=== PATIENT | male | born 1980 | race Caucasian/White ===

== ENCOUNTER 2018-12-10 19:07 | Emergency (ER) | payer SELFPAY ==
[2018-12-10] MEDS ORDERED: Tetan/Diph/Pertus SYR(Tdap)* 0.5 ML SYR(BOOSTRIX) use SYR IM ONE (19:24)
[2018-12-10] MEDS ORDERED: Ibuprofen TAB* 600 MG PO ONE (19:24)
--- NOTE | 2018-12-10 19:26 | ED ---
Lower Extremity - HPI Summary HPI Summary: 37 year [facility] complains of left jennings pain after slipping and landing on concrete step at work yesterday. The patient rates the pain 7/10 in severity. Symptoms aggravated by walking. Symptoms alleviated by nothing. Patient reports left jennings ecchymosis, left jennings abrasions, left jennings swelling. Patient is unsure whether he is up to date with his tetanus shot. - History of Current Complaint Chief Complaint: EDExtremityLower Stated Complaint: "LEFT LEG INJURY PER PT" Time Seen by Provider: 12/10/18 19:16 Hx Obtained From: Patient Mechanism Of Injury: Other - slipping and falling on to concrete step Onset/Duration: Still Present - 1 Severity Currently: Moderate Pain Intensity: 7 Pain Scale Used: 0-10 Numeric Timing: Constant Associated Signs And Symptoms: Positive: Other - left jennings ecchymosis, left jennings abrasions, left jennings swelilng Aggravating Factor(s): Movement Alleviating Factor(s): Nothing - Allergies/Home Medications Allergies/Adverse Reactions: Allergies Allergy/AdvReac Type Severity Reaction Status Date / Time No Known Allergies Allergy Verified 12/10/18 19:12 PMH/Surg Hx/FS Hx/Imm Hx Previously Healthy: No Endocrine/Hematology History: Denies: Hx Diabetes Cardiovascular History: Denies: Hx Hypertension Respiratory History: Denies: Hx Asthma GI History: Reports: Other GI Disorders - inguinal hernia Sensory History: Denies: Hx Legally Blind, Hx Deafness Opthamlomology History: Denies: Hx Legally Blind EENT History: Denies: Hx Deafness - Surgical History Surgery Procedure, Year, and Place: bilateral inguinal hernia February 2018 Infectious Disease History: No Infectious Disease History: Denies: Traveled Outside the [place] in Last 30 Days - Family History Known Family History: Positive: Other - Lung CA - Social History Alcohol Use: Occasionally Hx Substance Use: No Substance Use Type: Reports: None Hx Tobacco Use: Yes Smoking Status (MU): Heavy Every Day Tobacco Smoker Type: Cigarettes Review of Systems Positive: Other - left jennings pain Positive: Other - left jennings ecchymosis and left jennings abrasions All Other Systems Reviewed And Are Negative: Yes Physical Exam - Summary Physical Exam Summary: Appearance: Well appearing, no pain distress Skin: warm, dry, reflects adequate perfusion Head/face: normal Eyes: EOMI, BAYLEE ENT: normal Neck: supple, non-tender Respiratory: CTA, breath sounds present Cardiovascular: RRR, pulses symmetrical Abdomen: non-tender, soft Musculoskeletal: abrasion and swelling of lateral aspect of left leg Neuro: normal, sensory motor intact, A&Ox3 Triage Information Reviewed: Yes Vital Signs On Initial Exam: Initial Vitals Temp Pulse Resp BP Pulse Ox 99.1 F 106 16 141/87 97 12/10/18 19:12 12/10/18 19:12 12/10/18 19:12 12/10/18 19:12 12/10/18 19:12 Vital Signs Reviewed: Yes Diagnostics - Vital Signs Vital Signs Temp Pulse Resp BP Pulse Ox 12/10/18 19:12 99.1 F 106 16 141/87 97 - Laboratory Lab Statement: Any lab studies that have been ordered have been reviewed, and results considered in the medical decision making process. - Radiology X-ray Radiology Interpretation Completed By: ED Physician Summary of Radiographic Findings: Negative for fracture. Pending official report. Re-Evaluation - Re-Evaluation First Eval Re-Evaluation Time: 19:44 Change: Improved Lower Extremity Course/Dx - Course Course Of Treatment: 37 year old M presenting to [facility] complains of left jennings pain, left jennings ecchymosis, left jennings abraison, left jennings swelling after slipping and landing on concrete step at work yesterday. X-ray is negative for fracture. In ED course, patient was given Motrin and tetanus shot. Patient feels better. Patient will be discharged home with follow up from primary care provider in 3 days. He was advised to use ibuprofen for pain and swelling. Patient was instructed to return to ED for new or worsening symptoms. Patient understands and is agreeable to discharge plan. - Diagnoses Differential Diagnosis/HQI/PQRI: Positive: Contusion, Fracture (Closed) Provider Diagnoses: Abrasion of leg, left, Contusion Discharge - Sign-Out/Discharge Documenting (check all that apply): Patient Departure - Discharge Patient Received Moderate/Deep Sedation with Procedure: No - Discharge Plan Condition: Stable Disposition: HOME Prescriptions: Ibuprofen TAB* [Motrin TAB* 600 MG] 600 mg PO Q8H PRN #15 tab MDD 3 PRN Reason: Pain Patient Education Materials: Contusion in Adults (ED) Forms: *Work Release Referrals: [facility]YSICIAN REFERRAL [Outside] - 3 Days Additional Instructions: Arrange a primary care provider to have a follow up appointment in 3 days. RETURN TO EMERGENCY DEPARTMENT FOR NEW OR WORSENING SYMPTOMS. - Billing Disposition and Condition Condition: STABLE Disposition: Home - Attestation Statements Document Initiated by Grady: Yes Documenting Scribe: Patricia Bonner Provider For Whom Grady is Documenting (Include Credential): Main Guzman MD Scribe Attestation: Patricia Palmer, scribed for Main Guzman MD on 12/10/18 at 2020. Scribe Documentation Reviewed: Yes Provider Attestation: The documentation as recorded by the Patricia rivero accurately reflects the service I personally performed and the decisions made by , Main Guzman MD Status of Scribe Document: Viewed
[2018-12-10 20:22] VITALS: BP 133/84
== END 2018-12-10 20:20 | disposition home or self-care (01) ==
LOC: ED 19:07
DX: S80.812A Abrasion, left lower leg, initial encounter (principal); W01.0XXA Fall on same level from slipping, tripping and stumbling without subsequent striking against object, initial encounter; Y99.0 Civilian activity done for income or pay; K40.90 Unilateral inguinal hernia, without obstruction or gangrene, not specified as recurrent; F17.210 Nicotine dependence, cigarettes, uncomplicated
CPT/HCPCS: 90471; 90715; 99282; A9270-GY